=== PATIENT | female | born 1940 | race Caucasian/White ===

== ENCOUNTER → 2017-05-15 17:07 | Outpatient (CLI) | payer MEDICARE, BC | END | disposition home or self-care (01) | LOC: D.MAMMO 13:15 | DX: Z12.31 Encounter for screening mammogram for malignant neoplasm of breast (principal) ==

== ENCOUNTER → 2017-06-19 16:51 | Outpatient (CLI) | payer MEDICARE, BC | END | disposition home or self-care (01) | LOC: D.MAMMO 09:30 | DX: R92.8 Other abnormal and inconclusive findings on diagnostic imaging of breast (principal) ==

== ENCOUNTER 2020-06-02 08:30 | Outpatient (CLI) | payer MEDICARE, BC ==
[~2020-06-02] VITALS: Ht 160 cm; Wt 77.3 kg
[2020-06-02 13:00] LABS: ALBUMIN 3.8 g/dL (3.4-5.0); ANION GAP 9.9 mmol/L (8-16); BILIRUBIN - TOTAL 0.58 mg/dL (0.2-1.3); CALCIUM 9.1 mg/dL (8.5-10.1); CARBON DIOXIDE 26.5 mmol/L (21.0-32.0); CREATININE - SERUM 1.5 mg/dL (0.6-1.3); MAGNESIUM - SERUM 2.3 mg/dL (1.8-2.4); PHOSPHOROUS 3.5 mg/dL (2.5-4.9); POTASSIUM - SERUM 4.4 mmol/L (3.5-5.1); PROTEIN - SERUM 7.4 g/dL (6.4-8.2)
[2020-06-02 13:41] LABS: BASOPHILS 0.1 % (0-2); EOSINOPHILS 0.3 % (0-7); HEMATOCRIT 37.3 % (36.0-48.0); HEMOGLOBIN 12.4 g/dL (12-16); IMMATURE GRANULOCYTES 0.4 % (0-5); LYMPHOCYTES 13.7 % (15-50); MCH 29.3 pg (26.0-34.0); MCHC 33.2 g/dL (31.0-37.0); MCV 88.2 fL (80.0-100.0); MEAN PLATELET VOLUME 11.4 fL (7.4-10.4); NEUTROPHILS 82.5 % (40-80); PLATELET COUNT 287 10x3/uL (130-400); RBC 4.23 10x6/uL (4.00-5.40); RDW 13.1 % (11.5-14.5)
[2020-06-02 13:44] VITALS: BP 114/62; Ht 160 cm; Wt 77.3 kg
[2020-06-02] MEDS ORDERED: CELEBREX200 MG (13:50)
[2020-06-02] MEDS ORDERED: PROTONIX40 MG PO (13:50)
[2020-06-02] MEDS ORDERED: COZAAR50 MG (13:51)
[2020-06-02] MEDS ORDERED: LOSARTAN-HCTZ1 EAC1 PO (13:53)
[2020-06-02] MEDS ORDERED: CLARITIN 10 MG10 MG PO (13:54)
[2020-06-02] MEDS ORDERED: BYSTOLIC10 MG PO (13:54)
[2020-06-02] MEDS ORDERED: BAYER CHEWABLE81 MG PO (13:56)
[2020-06-02 15:33] LABS: BILIRUBIN NEGATIVE (NEGATIVE); KETONE NEGATIVE (NEGATIVE); NITRITE NEGATIVE (NEGATIVE); UROBILINOGEN NORMAL (NORMAL)
--- NOTE | 2020-06-02 17:16 | NUR ---
[facility] IN CARE OF WHO IS A PHYSICIAN AND ACCEPTS CARE OF PATIENT AND WILL D/C IV WHEN IVF [facility] INFUSED. PT IS W/O C/O
== END 2020-06-02 16:05 ==
LOC: D.US 08:30
PROVIDERS: ATTEND Surgery
DX: R10.11 Right upper quadrant pain (principal); R11.2 Nausea with vomiting, unspecified; E86.0 Dehydration